=== PATIENT | female | born 1950 | race Caucasian/White ===

== ENCOUNTER → 2020-07-19 15:31 | Outpatient (CLI) | payer MEDICARE, BC, SELFPAY | PROVIDERS: PCP Family Medicine; Visit Provider Family Medicine | DX: Z03.818 Encounter for observation for suspected exposure to other biological agents ruled out (principal) | CPT/HCPCS: U0003 ==

== ENCOUNTER → 2022-08-05 13:36 | Outpatient (POV) | payer MEDICARE, BC, SELFPAY | PROVIDERS: Visit Provider Dermatology | DX: Z00.00 Encounter for general adult medical examination without abnormal findings (principal) ==

== ENCOUNTER 2024-11-28 08:10 | Emergency (ER) | payer MEDICARE, BC, SELFPAY ==
[2024-11-28 08:11] VITALS: BP 149/89; PULSE 105; RESP 20; TEMP 37; O2SAT 96; BMI 25.7
[2024-11-28 08:30] VITALS: BP 142/81; PULSE 99; O2SAT 96
--- NOTE | 2024-11-28 08:54 | CT_ITS ---
FINAL REPORT TECHNIQUE: Oral and IV contrast enhanced exam. Coronal and sagittal images were obtained and reviewed. This study was performed with techniques to keep radiation doses as low as reasonably achievable, (ALARA). Individualized dose reduction techniques using automated exposure control or adjustment of mA and/or kV according to the patient''s size were employed. CLINICAL HISTORY: diffuse lower abd pain, n/v/d COMPARISON: None FINDINGS: Abdomen: No acute density is seen within the lung bases. Upper pole left renal cyst measures 31 mm. The remaining solid organs are normal. The patient is status post cholecystectomy. There is no evidence of biliary ductal dilatation. There is moderate gastric distention with fluid. Mild wall thickening of the gastric antrum raises the question of gastritis or even peptic ulcer disease. Consider follow-up EGD for further evaluation. A component of gastric outlet syndrome is not excluded. The small bowel is unremarkable. There is no adenopathy. Pelvis: The appendix is not seen, possibly removed at time of hysterectomy. There is a benign-appearing cystic lesion in the posterior pelvis, likely ovarian in origin, measuring 15 mm. The right ovary is normal. There is mild pelvic floor prolapse. There is no free fluid. IMPRESSION: Abnormal wall thickening of the gastric antrum with distention could represent gastritis or peptic ulcer disease. Consider follow-up EGD. Reviewed, Interpreted and Dictated by Manuel Silver MD Transcribed by Sirisha Taylor Authenticated and [facility]
--- NOTE | 2024-11-28 08:55 | ED_ITS ---
Discharge Plan Disposition Patient Disposition: Home, Self-Care Prescriptions Prescriptions: New dicyclomine 20 mg tablet 20 mg PO TID PRN (Reason: abdominal pain or spasm) 7 Days Qty: 21 0RF Referrals Follow up/Referrals: Jose Rafael Root [Primary Care Provider] - See instructions Activity Restrictions/Add. Instructions Additional Instructions/Restrictions: No emergent medical condition identified today your symptoms are most likely continuation or an acute exacerbation of your chronic IBS?D. I do recommend that you follow-up with your candy separator enrobing in the meantime we have prescribed you dicyclomine/Bentyl which may help with your spasmodic discomfort. Keep yourself well-hydrated. Also as noted on your CT scan there is some slight thickening of your gastric/stomach wall which you are aware of but this needs to be followed closely by your candy separator enrobing. Clinical Impressions Clinical Impression: Nausea vomiting and diarrhea Instructions Patient Instructions: DI for Acute Abdominal Pain Print Language Print Language: Maltese Discharge ED Provider: Gabby Mcclain General Adult HPI General Chief complaint: Abdominal Pain Stated complaint: abd pain diarrhea vomiting Time Seen by Provider: 11/28/24 08:44 Mode of Arrival: Ambulatory Source of Information: Patient and Spouse Description of Symptoms (Recalled from ER Triage Doc. by RN): pt is here today for upper abd pain that started last night followed by diarrhea which is not abnormal for her bc she has ibs however it was then followed by vomiting which is abnormal. History of Present Illness HPI narrative: Patient is a 74-year-old female with a history of IBS?D who presents today with acute worsening of her abdominal pain and nausea vomiting and diarrhea. Pain woke her up around 1:30 AM. Located in mid epigastric region and diffusely across her lower abdomen. No blood in her vomit or in her stool. No melena from historical standpoint. She has been recently on budesonide. She is followed by candy separator enro[facility] at [facility]. She has recently had colonoscopies and endoscopies which initially did show some ulceration she is unsure of the exact location but repeat scope showed that those had healed. She has not had any imaging of her abdomen in several years. No fevers chills etc. Related Data Previous Rx's ?Medication ?Instructions ?Recorded dicyclomine 20 mg tablet 20 mg PO TID PRN abdominal pain or 11/28/24 spasm 7 days #21 tabs Allergies Allergy/AdvReac Type Severity Reaction Status Date / Time erythromycin base Allergy Rash Verified 11/28/24 09:13 sumatriptan (From Imitrex) Allergy Nausea Verified 11/28/24 09:12 [facility] Disclaimer: The information contained in this section may have been updated after the patient was seen, as this information can be updated by other users. Social History Smoking Status: Unknown if ever smoked alcohol intake: never current occupational status: other Travel in the last 8 weeks: None ROS Obtained: Yes All systems reviewed & no additional complaints except as documented Physical Exam General General appearance: alert and in no apparent distress Respiratory Respiratory exam: Present normal lung sounds bilaterally Cardiovascular Cardiovascular exam: Present regular rate Abdominal Exam Abdominal exam: Present other (Patient has diffuse lower abdominal tenderness no rebound or guarding no masses felt no significant distention noted) Neurological Exam Neurological exam: Present alert and oriented X3 Medical Decision Making Medical Records Screening: Per USPSTF and CDC recommendations, given the prevalence of disease in our region, it is our hospital?s policy to screen for HIV and viral Hepatitis for all patients aged 18 and over and those with ongoing risk factors. Piotr Inquiry Pt receiving controlled substance: No Vital Signs: 11/28/24 08:11 11/28/24 08:30 11/28/24 09:30 Temperature 98.6 F Temperature Source Oral Pulse Rate 99 H 95 H Pulse Rate [Left Radial] 105 H Respiratory Rate 20 Blood Pressure 142/81 H 142/81 H Blood Pressure [Right Arm] 149/89 H Blood Pressure Mean 105 Blood Pressure Mean [Right Arm] 109 02 Sat by Pulse Oximetry 96 96 95 Oxygen Delivery Method Room Air 11/28/24 10:25 Temperature Temperature Source Pulse Rate 95 H Pulse Rate [Left Radial] Respiratory Rate Blood Pressure 122/63 Blood Pressure [Right Arm] Blood Pressure Mean 82 Blood Pressure Mean [Right Arm] 02 Sat by Pulse Oximetry 98 Oxygen Delivery Method Lab Data Lab results reviewed: Yes I reviewed the patient's lab results. Lab Results 11/28/24 09:00: WBC 10.6, RBC 4.73, Hgb 13.4, Hct 41.6, MCV 87.9, MCH 28.3, MCHC 32.2, RDW 13.2, Plt Count 258, MPV 9.7, Neut % (Auto) 94.7 H, Lymph % (Auto) 2.8 L, [place] % (Auto) 1.9, Eos % (Auto) 0.3, Baso % (Auto) 0.1, Neut # (Auto) 10.0 H, Lymph # (Auto) 0.3 L, [place] # (Auto) 0.2, Eos # (Auto) 0.0, Baso # (Auto) 0.0, Total Counted 100, Neutrophils % (Manual) 84 H, Band Neutrophils % 9.0 H, L ymphocytes % (Manual) 4 L, Monocytes % (Manual) 2, Eosinophils % (Manual) 1, Platelet Estimate Normal, RBC Morphology Normal, Sodium 142, Potassium 4.1, C hloride 110 H, Carbon Dioxide 23, Anion Gap 13.1, BUN 15, Creatinine 0.90, Estimated Creat Clear 56, Estimated GFR 62, Est GFR ( Amer) 74, Glucose 186 H, Lactate 1.3, Calcium 9.4, Total Bilirubin 0.4, AST 29, ALT 21, Alkaline Phosphatase 120, Total Protein 8.1, Albumin 4.7, Globulin 3.4 H, Albumin/Globulin Ratio 1.4, Lipase 132 11/28/24 09:00 11/28/24 09:00 Orders (Tests/Meds): ED MEDICATIONS Discontinued Medications Generic Name Dose Route Start Last Admin Trade Name Ollieq PRN Reason Stop Dose Admin Lactated Ringer's 1,000 mls @ 999 mls/hr 11/28/24 09:00 11/28/24 09:19 Lactated Ringer's 1000 Ml Bag IV 11/28/24 10:00 999 mls/hr .Q1H1M SABRINA Administration Iopamidol 75 ml 11/28/24 09:45 11/28/24 09:46 Iopamidol-370 (76%);100ml Bottle IV 11/28/24 09:46 75 ml ONCE ONE Administration Morphine Sulfate 4 mg 11/28/24 08:54 11/28/24 09:18 Morphine 4mg/Ml Syringe IV 11/28/24 08:55 4 mg ONCE ONE Administration Ondansetron HCl 4 mg 11/28/24 08:54 11/28/24 09:19 Ondansetron 4mg/2ml Vial IV 11/28/24 08:55 4 mg ONCE ONE Administration Promethazine HCl 12.5 mg 11/28/24 10:55 11/28/24 10:59 Promethazine Hcl 25mg/Ml 1ml Vial IV 11/28/24 10:56 12.5 mg ONCE ONE Administration Sodium Chloride 10 ml 11/28/24 09:45 11/28/24 09:46 Sodium Chloride 0.9% 10ml Syr (Rad Only) IV 11/28/24 09:46 10 ml ONCE ONE Administration Sodium Chloride 25 ml 11/28/24 10:55 11/28/24 10:59 Sodium Chloride 0.9% 25ml Bag IV 11/28/24 10:56 25 ml ONCE ONE Administration ORDERS Category Date Time Status CT abdomen pelvis w con Stat Cat Scan 11/28/24 08:54 Completed CBC w/Auto Diff [Complete Blood Count Auto Diff] Stat Lab 11/28/24 09:00 Completed CMP [Comprehensive Metabolic Panel] Stat Lab 11/28/24 09:00 Completed Lactic Acid Stat Lab 11/28/24 09:00 Completed Lipase Stat Lab 11/28/24 09:00 Completed Medical Decision Narrative: Patient with a history of chronic abdominal pain and IBS?D presents today with worsening of her abdominal pain nausea vomiting diarrhea. Differential includes an acute exacerbation of her known chronic illness, malignancy, diverticulitis, colitis, gastroenteritis, etc. Will get a contrasted CT scan for further evaluation and management IV fluids pain medicine nausea medicine have been administered will reassess. Reassessment 1130 serial exams are benign however patient still has some nausea. She was given Phenergan as well. CT scan was performed which I personally interpreted which shows no evidence of an acute abnormality she does have some chronic gastric wall thickening she has had multiple endoscopies recently she is aware this will follow-up with her candy separator enrobing. I discussed with her multiple therapeutic options we decided to go with some Jeanyl today. She will follow back up with her doctor and was discharged in stable condition. Critical Care Critical Care Time Critical Care Time: No
[2024-11-28 09:13] LABS: Basophils % 0.1 % (0.1-2.0); Eosinophils % 0.3 % (0.1-12.0); Hematocrit 41.6 % (37.0-47.0); Hemoglobin 13.4 g/dL (12.2-16.2); Lymphocytes # 0.3 K/mm3 (0.7-4.5); Lymphocytes % 2.8 % (10-50); Mean Corpuscular HGB Conc 32.2 g/dL (31.8-35.4); Mean Corpuscular Hemoglobin 28.3 pg (27.0-31.2); Mean Corpuscular Volume 87.9 fl (81-99); Mean Platelet Volume 9.7 fl (7.4-10.4); Monocytes # 0.2 K/mm3 (0.1-1.0); Monocytes % 1.9 % (1.7-9.3); Neutrophils % 94.7 % (37.0-80.0); Platelet Count 258 K/mm3 (142-424); Red Blood Count 4.73 M/mm3 (4.20-5.40); Red Cell Distribution Width 13.2 % (11.5-17.5); White Blood Count 10.6 K/mm3 (4.8-10.8)
[2024-11-28 09:14] LABS: MANUAL DIFFERENTIAL MANUAL DIFFERENTIAL (MANUAL DIFF)
[2024-11-28] MEDS: MORPHINE 4MG/ML SYRINGE 4 MG IV (09:18)
[2024-11-28] MEDS: LACTATED RINGERS 1000ML 1,000 ML 999 ML IV (09:19)
[2024-11-28] MEDS: ONDANSETRON 4MG/2ML VIAL 4 MG IV (09:19)
[2024-11-28 09:24] LABS: Albumin Level 4.7 g/dl (3.5-5.0); Chloride 110 mmol/L (98-107)
[2024-11-28 09:25] LABS: Potassium 4.1 mmoL/L (3.5-5.1); Sodium 142 mmol/L (136-145)
[2024-11-28 09:27] LABS: Alanine Aminotransferase 21 U/L (12-78); Alkaline Phosphatase 120 U/L (38-126); Anion Gap 13.1 mEq/L (5-15); Aspartate Amino Transferase 29 U/L (14-36); Bilirubin,Total 0.4 mg/dl (0.2-1.3); Blood Urea Nitrogen 15 mg/dl (7-17); Carbon Dioxide 23 mmol/L (22.0-30.0); Creatinine Clearance Estimated 56 mL/min (50-200); Estimated Glomerular Filt Rate 62 ml/min (>60); GFR (African American) 74 ML/MIN (>60)
[2024-11-28 09:28] LABS: Albumin/Globulin Ratio 1.4 (1.1-1.8); Calcium 9.4 mg/dl (8.4-10.2); Globulin 3.4 g/dL (1.3-3.2); Glucose 186 mg/dl (74-100); Lactic Acid 1.3 mmol/L (0.7-2.1); Lipase 132 U/L (23-300); Total Protein,Serum 8.1 g/dl (6.3-8.2)
[2024-11-28 09:30] VITALS: BP 142/81; PULSE 95; O2SAT 95
[2024-11-28] MEDS: SODIUM CHLORIDE 0.9% 10ML SYR (RAD ONLY) 10 ML IV (09:46)
[2024-11-28] MEDS: IOPAMIDOL-370 (76%);100ML BOTTLE 75 ML IV (09:46)
[2024-11-28 09:55] LABS: Eosinophils % 1 % (0-3); Lymphocytes % 4 % (10-50); Monocytes % 2 % (2-9); Neutrophils % 84 % (42-76); Platelet Estimate Normal; RBC Morphology Normal; Total Cells Counted 100
[2024-11-28 10:25] VITALS: BP 122/63; PULSE 95; O2SAT 98
[2024-11-28] MEDS: PROMETHAZINE HCL 25MG/ML 1ML VIAL 12.5 MG IV (10:59)
[2024-11-28] MEDS: SODIUM CHLORIDE 0.9% 25ML BAG 25 ML IV (10:59)
[2024-11-28 11:35] VITALS: BP 143/77; PULSE 83; RESP 18; TEMP 37; O2SAT 98
== END 2024-11-28 11:36 | disposition home or self-care (01) ==
PROVIDERS: Emergency Provider Student in an Organized Health Care Education/Training Program; PCP Family Medicine
DX: R11.2 Nausea with vomiting, unspecified (principal); R10.10 Upper abdominal pain, unspecified; R19.7 Diarrhea, unspecified
CPT/HCPCS: 74177; 80053; 83605; 83690; 85007; 85025; 85027; 96361; 96374; 96375; 99285; J2270; J2405; J2550; J7120; Q9967